=== PATIENT | female | born 1970 | race Caucasian/White ===

== ENCOUNTER 2017-05-26 04:01 | Emergency (ER) | payer MEDICARE ==
[2017-05-26 04:01] VITALS: BP 110/65
--- NOTE | 2017-05-26 04:06 | ED.ADGEN ---
Past History Past Medical History: Anxiety, Arthritis Adult General Chief Complaint Chief Complaint " I got arthritis.. it moves around.. and my mom said not to walk too much... but she been a year... and I did not want to wake up my .. so I call the ambulance.. they walk me in here.. I see Emanuel Romo.. she up my meloxicam....but that does not seem to be helping... my has psoriasis from hell... I have psoriasis..too..".." My is 56.. and I am 47.. and I did not want to wake him up... " " He can't handle the stress..." " We are staying in the hotel...".. " I have pain.. ".. " but I have anxiety too..." ." this arthritis moves around,.. it is in my hand tonight..".. It was in this Rt. knee the other day... " .." it was in my toes too... " " I use to clean for people.. "... " that made my knee worse..." HPI HPI Patient is a 47 year old female who presents with above hx and complaints of generalize arthralgias that seemed to be migratory. Patient today complaining of edema in right foot and pain, and left hand edema and pain. Patient does smoke. Patient denies drug use. Patient denies any history of immunosuppression. Patient follows with Dr. Welch. Has been getting long-acting anti-inflammatories for her discomfort. She denies any travel. The patient denies any specific ill contacts. Patient states she is up-to-date with her tetanus. Patient states she's never completed a joint aspiration for diagnosis of her arthritic complaints. Patient has previously refused Testing for arthritis workup. Her arthritis pattern would give the impression that it is rheumatoid. Patient also has findings of psoriasis which can also cause arthritis. Currently patient has no joints with marked swelling or fluid in which an aspiration could be done. Review of Systems Review of Systems Constitutional: Denies fever or chills [] Eyes: Denies change in visual acuity, redness, or eye pain [] HENT: Denies nasal congestion or sore throat [] Respiratory: Denies cough or shortness of breath [] Cardiovascular: No additional information not addressed in HPI [] GI: Denies abdominal pain, nausea, vomiting, bloody stools or diarrhea [] : Denies dysuria or hematuria [] Musculoskeletal: Patient has complaints of chronic joint pain Integument: Denies rash or skin lesions [] Neurologic: Denies headache, focal weakness or sensory changes [] Endocrine: Denies polyuria or polydipsia [] Family History Family History Family history of arthritic type complaints Current Medications Current Medications Current Medications Medications (Trade) Dose Ordered Sig/Kellie Start Time Stop Time Status Last Admin Dose Admin Ketorolac Tromethamine (Toradol) 60 mg 1X ONCE 05/26/17 05:00 05/26/17 05:01 DC 05/26/17 04:53 60 MG Potassium Chloride (KCl Oral Soln) 40 meq 1X ONCE 05/26/17 06:30 05/26/17 06:30 DC 05/26/17 06:04 40 MEQ Trimethoprim/ Sulfamethoxazole (Bactrim Ds) 1 tab 1X ONCE 05/26/17 06:30 05/26/17 06:30 DC 05/26/17 06:03 1 TAB Allergies Allergies Allergies Coded Allergies Type Severity Reaction Last Updated Verified divalproex sodium Allergy Intermediate 05/26/17 Yes erythromycin base Allergy Intermediate 05/26/17 Yes Physical Exam Physical Exam Constitutional: In acute emotional distress, non-toxic appearance. [Pressured speech. Has bed bugs on her clothing. HENT: Normocephalic, atraumatic, bilateral external ears normal, oropharynx moist, no oral exudates, nose normal. [] Eyes: PERRLA, EOMI, conjunctiva normal, no discharge. [] Neck: Normal range of motion, no tenderness, supple, no stridor. [] Cardiovascular:Heart rate regular rhythm, no murmur [] Lungs & Thorax: Bilateral scattered wheezes auscultation [] Abdomen: Bowel sounds normal, soft, no tenderness, no masses, no pulsatile masses. [] Skin: Warm, dry, no erythema, psoriasis, bedbugs noted on patient's skin Back: No tenderness, no CVA tenderness. [] Extremities: No tenderness, no cyanosis, no clubbing, ROM intact, left hand edema. [] Neurologic: Alert and oriented X 3, normal motor function, normal sensory function, no focal deficits noted. [] Psychologic: Affect anxious, , judgement normal, mood depressed. Current Patient Data Vital Signs Vital Signs Date Time Temp Pulse Resp B/P (MAP) Pulse Ox O2 Delivery O2 Flow Rate FiO2 05/26/17 04:01 98.6 86 20 98 Room Air Lab Results Laboratory Tests Test 05/26/17 04:32 White Blood Count 9.1 x10^3/uL (4.0-11.0) Red Blood Count 3.99 x10^6/uL (3.50-5.40) Hemoglobin 12.4 g/dL (12.0-15.5) Hematocrit 36.4 % (36.0-47.0) Mean Corpuscular Volume 91 fL (79-100) Mean Corpuscular Hemoglobin 31 pg (25-35) Mean Corpuscular Hemoglobin Concent 34 g/dL (31-37) Red Cell Distribution Width 13.5 % (11.5-14.5) Platelet Count 318 x10^3/uL (140-400) Neutrophils (%) (Auto) 72 % (31-73) Lymphocytes (%) (Auto) 16 % (24-48) L Monocytes (%) (Auto) 6 % (0-9) Eosinophils (%) (Auto) 4 % (0-3) H Basophils (%) (Auto) 1 % (0-3) Neutrophils # (Auto) 6.6 x10^3uL (1.8-7.7) Lymphocytes # (Auto) 1.5 x10^3/uL (1.0-4.8) Monocytes # (Auto) 0.6 x10^3/uL (0.0-1.1) Eosinophils # (Auto) 0.4 x10^3/uL (0.0-0.7) Basophils # (Auto) 0.1 x10^3/uL (0.0-0.2) Erythrocyte Sedimentation Rate 40 (0-25) H Urine Collection Type U cath Urine Color Yellow Urine Clarity Hazy Urine pH 5.5 Urine Specific [place] 1.020 Urine Protein 30 mg/dl (NEG-TRACE) Urine Glucose (UA) 100 mg/dL (NEG) Urine Ketones (Stick) Neg mg/dL (NEG) Urine Blood Large (NEG) Urine Nitrite Neg (NEG) Urine Bilirubin Neg (NEG) Urine Urobilinogen Dipstick 0.2 mg/dL (0.2 mg/dL) Urine Leukocyte Esterase Trace (NEG) Urine RBC 1-2 /HPF (0-2) Urine WBC 1-4 /HPF (0-4) Urine Squamous Epithelial Cells Few /LPF Urine Bacteria Few /HPF (0-FEW) Sodium Level 141 mmol/L (136-145) Potassium Level 3.1 mmol/L (3.5-5.1) L Chloride Level 105 mmol/L (98-107) Carbon Dioxide Level 24 mmol/L (21-32) Anion Gap 12 (6-14) Blood Urea Nitrogen 10 mg/dL (7-20) Creatinine 1.3 mg/dL (0.6-1.0) H Estimated GFR (Cockcroft-Gault) 44.1 BUN/Creatinine Ratio 8 (6-20) Glucose Level 188 mg/dL (70-99) H Uric Acid 3.7 mg/dL (2.6-6.0) Calcium Level 8.9 mg/dL (8.5-10.1) Total Bilirubin 0.3 mg/dL (0.2-1.0) Aspartate Amino Transferase (AST) 9 U/L (15-37) L Alanine Aminotransferase (ALT) 10 U/L (14-59) L Alkaline Phosphatase 108 U/L (46-116) Total Protein 7.7 g/dL (6.4-8.2) Albumin 3.3 g/dL (3.4-5.0) L Albumin/Globulin Ratio 0.8 (1.0-1.7) L Urine Opiates Screen Neg (NEG) Urine Methadone Screen Neg (NEG) Urine Barbiturates Neg (NEG) Urine Phencyclidine Screen Neg (NEG) Urine Amphetamine/Methamphetamine Neg (NEG) Urine Benzodiazepines Screen Neg (NEG) Urine Cocaine Screen Pos (NEG) Urine Cannabinoids Screen Neg (NEG) Urine Ethyl Alcohol Neg (NEG) Cyclic Citrullinated Peptide IgG Ab 249 units (0-19) H Microbiology 05/26/17 Urine Culture - Preliminary, Resulted 05/26/17 Urine Culture Result 1 (JORDI) - Preliminary, Resulted Microbiology 05/26/17 Urine Culture - Preliminary, Resulted 05/26/17 Urine Culture Result 1 (JORDI) - Preliminary, Resulted EKG EKG [] Radiology/Procedures Radiology/Procedures My interpretation of hand x-ray shows some finger edema. No obvious fracture. Some degenerative joint changes.[] Course & Med Decision Making Course & Med Decision Making Pertinent Labs and Imaging studies reviewed. (See chart for details). Pt. to keep follow up with primary. Consider consult with rheumatology. She encouraged to stop smoking. Patient take meds. as previous directed. Follow up labs taken here. [] Final Impression Final Impression 1. Arthritis - possible psoriatic, versus rheumatoid, but cannot rule out gout, versus pseudogout, versus DJD. 2. Anxiety 3. Hypokalemia 4. Cocaine Use. 5. UTI 6. Bed Bugs 7. High Cycl. Citrul. Peptide IgG= Consistent with Rheumatoid Arthritis Problems: Dragon Disclaimer Dragon Disclaimer This electronic medical record was generated, in whole or in part, using a voice recognition dictation system. GRICELDA STANTON MD May 26, 2017 04:06
[2017-05-26 04:57] LABS: BASO # 0.1 x10^3/uL (0.0-0.2); BASO % 1 % (0-3); EOS # 0.4 x10^3/uL (0.0-0.7); EOS % 4 % (0-3); HEMATOCRIT 36.4 % (36.0-47.0); HEMOGLOBIN 12.4 g/dL (12.0-15.5); LYMPH # 1.5 x10^3/uL (1.0-4.8); LYMPH % 16 % (24-48); MEAN CORPUSCULAR HEMOGLOBIN 31 pg (25-35); MEAN CORPUSCULAR HGB CONC 34 g/dL (31-37); MEAN CORPUSCULAR VOLUME 91 fL (79-100); MONO # 0.6 x10^3/uL (0.0-1.1); MONO % 6 % (0-9); NEUT # 6.6 x10^3uL (1.8-7.7); NEUT % 72 % (31-73); PLATELET COUNT 318 x10^3/uL (140-400); RED BLOOD COUNT 3.99 x10^6/uL (3.50-5.40); RED CELL DISTRIBUTION WIDTH 13.5 % (11.5-14.5); WHITE BLOOD COUNT 9.1 x10^3/uL (4.0-11.0)
[2017-05-26] MEDS ORDERED: KETOROLAC 60 MG/2 ML VIAL. IM ONE (05:00)
[2017-05-26 05:05] LABS: BACTERIA,URINE FEW /HPF (0-FEW); BILIRUBIN,URINE NEG (NEG); CLARITY,URINE HAZY; COLOR,URINE YELLOW; GLUCOSE,URINE 100 mg/dL (NEG); NITRITE,URINE NEG (NEG); SQUAMOUS EPITHELIAL CELL,UR FEW /LPF; UROBILINOGEN,URINE 0.2 mg/dL (0.2 mg/dL)
[2017-05-26 05:11] LABS: BARBITURATES NEG (NEG); BENZODIAZEPINES NEG (NEG); CANNABINOIDS NEG (NEG); COCAINE POS (NEG); METHADONE NEG (NEG); OPIATES NEG (NEG); PHENCYCLIDINE NEG (NEG)
[2017-05-26 05:12] LABS: AMPHETAMINE/METHAMPHETAMINE NEG (NEG)
[2017-05-26 05:15] LABS: ALBUMIN 3.3 g/dL (3.4-5.0); ALBUMIN/GLOBULIN RATIO 0.8 (1.0-1.7); CALCIUM 8.9 mg/dL (8.5-10.1); CREATININE 1.3 mg/dL (0.6-1.0); GFR 44.1; POTASSIUM 3.1 mmol/L (3.5-5.1); TOTAL BILIRUBIN 0.3 mg/dL (0.2-1.0); TOTAL PROTEIN 7.7 g/dL (6.4-8.2)
[2017-05-26] MEDS ORDERED: SULF1TAB23 PO (05:57)
[2017-05-26 06:01] LABS: SEDIMENTATION RATE 40 (0-25)
[2017-05-26] MEDS ORDERED: POTASSIUM CHLORIDE 20 MEQ/15 ML ORAL LIQUID. PO ONE (06:30)
[2017-05-26] MEDS ORDERED: SMZ/TMP 800/160MG TABLET. PO ONE (06:30)
--- NOTE | 2017-05-26 09:10 | RAD ---
Left hand, 3 views, 05/26/2017: History: Hand pain and swelling There are mild degenerative changes at scattered interphalangeal joints and at the radiocarpal articulation. Slight deformity of the fifth metacarpal shaft appears to be old. No acute fracture or dislocation is identified. The soft tissues are unremarkable. IMPRESSION: 1. Mild degenerative change. 2. No acute bony abnormality is detected.
== END 2017-05-26 06:10 | disposition home or self-care (01) ==
LOC: ER 04:01
DX: M19.90 Unspecified osteoarthritis, unspecified site (principal); G89.29 Other chronic pain; E87.6 Hypokalemia; F14.90 Cocaine use, unspecified, uncomplicated; N39.0 Urinary tract infection, site not specified; T14.8 Other injury of unspecified body region; Z88.1 Allergy status to other antibiotic agents; Z88.8 Allergy status to other drugs, medicaments and biological substances; W57.XXXA Bitten or stung by nonvenomous insect and other nonvenomous arthropods, initial encounter; Y93.89 Activity, other specified; Y99.8 Other external cause status; Y92.89 Other specified places as the place of occurrence of the external cause
CPT/HCPCS: 36415; 73130; 80053; 80307; 81001; 84550; 85025; 85651; 86200; 87086; 96372; 99285; J1885; G0479